=== PATIENT | male | born 1985 | race Two or more races ===

== ENCOUNTER 2024-02-18 11:18 | Emergency (ER) | payer MEDICAID, SELFPAY ==
[2024-02-18 11:22] VITALS: BP 171/105; BP 172/110; PULSE 110; RESP 20; TEMP 36.9; O2SAT 90; BMI 46.8
--- NOTE | 2024-02-18 11:31 | XR_ITS ---
Examination: CT abdomen and pelvis without contrast. Coronal 3-D reconstructions. Sagittal 2-D reconstructions. Date and time of exam:February 18, 2024 1343 hrs. Indications: Upper abdominal pain vomiting blood beginning 2 days ago CTDI: vol (mGy): 16.31 DLP: (mGycm): 25 Technique: Axial images of the abdomen have been obtained, 3 mm slice thickness Intravenous contrast material has not been administered. Low dose protocols were performed. One or more of the following dose reduction techniques were used; automated exposure control, adjustment of the mA and/or KV according to patient size, use of iterative reconstruction technique. Findings: Severe diffuse fatty infiltration throughout the liver, hepatomegaly 23 cm Liver mildly irregular in contour Mucosal thickening involving the stomach Spleen is not enlarged Gallstones No pancreatic or adrenal mass Mild bilateral renal parenchymal scar formation Aorta normal size No bowel obstruction No pericecal inflammatory change No diverticulitis Contracted urinary bladder No prostatomegaly Intact osseous structures Impression: Hepatomegaly, 23 cm, diffuse severe fatty infiltration throughout the liver Liver mildly irregular in contour, primary hepatocellular disease versus cirrhosis Gastritis pattern Cholelithiasis
--- NOTE | 2024-02-18 11:32 | XR_ITS ---
Examination: Abdomen sonogram, Limited Date and time of exam: February 18, 2024 1204 hrs. Indications: Abdominal pain nausea vomiting beginning 2 weeks ago Technique: Real-time sousa scale transabdominal sonographic images of the upper abdomen obtained. Findings: Normal gallbladder Common bile duct enlarged 0.8 cm no definite stones Pancreatic head 2.9 cm Significant hepatomegaly 24.9 cm fatty liver Normal hepatopedal portal venous flow Patent IVC Impression: Abnormally enlarged common bile duct 0.8 cm, consider MRCP follow-up to exclude common bile duct stones
[2024-02-18] MEDS: ONDANSETRON ODT 4 MG TABRAP PO (11:45)
[2024-02-18] MEDS: FAMOTIDINE 20 MG TABLET 40 MG PO (11:46)
[2024-02-18] MEDS: PANTOPRAZOLE 40 MG TABLET PO (11:46)
[2024-02-18 12:10] LABS: Basophils % (Auto) 1 % (0-2.5); Eosinophils # (Auto) 0.3 Thou/mm3 (0.0-0.5); Eosinophils % (Auto) 5 % (0-10); Hematocrit 44.6 % (41.0-53.0); Hemoglobin 15.7 g/dL (13.5-16.0); Immature Granulocytes % (Auto) 0 % (0-0); Immature Granulocytes Auto 0.01 Thou/mm3 (0.00-0.00); Lymphocytes % (Auto) 37 % (10-50); Mean Corpuscular HGB Conc 35.2 g/dl (31.0-37.0); Mean Corpuscular Hemoglobin 31.2 pg (25.0-35.0); Mean Corpuscular Volume 89 fL (80-100); Monocytes # (Auto) 0.3 Thou/mm3 (0.0-0.8); Monocytes % (Auto) 6 % (0-12); Neutrophils # (Auto) 2.8 Thou/mm3 (1.8-7.7); Neutrophils % (Auto) 51 % (37-80); Nucleated Red Blood Cell % 0 /100 WBC (0); Platelet Count 196 Thou/mm3 (140-440); RDW Standard Deviation 38.2 fL (35.1-43.9); Red Blood Count 5.04 Miln/mm3 (4.50-5.90); White Blood Count 5.4 Thou/mm3 (3.8-10.6)
[2024-02-18 12:37] LABS: Alanine Aminotransferase 65 U/L (10-49); Albumin, Serum 4.5 gm/dL (3.5-5.0); Albumin/Globulin Ratio 1.3 (1.2-2.2); Alkaline Phosphatase 135 U/L (46-116); Amylase 22 U/L (30-118); Anion Gap 6 (7-16); Aspartate Amino Transferase 41 U/L (0-34); BUN/Creatinine Ratio 10 Ratio (12-20); Bilirubin,Total 0.5 mg/dL (0.3-1.2); Blood Urea Nitrogen 11 mg/dL (9-23); Calcium 9.7 mg/dL (8.3-10.6); Calcium (Corrected) 9.7 mg/dL (8.5-10.1); Carbon Dioxide 30.1 mMol/L (20.0-31.0); Chloride 98 mMol/L (98-107); Creatinine (Component) 1.1 mg/dL (0.6-1.3); Estimated Creatinine Clearance 144.4 mL/min (>60); Globulin 3.4 gm/dL (2.3-3.5); Glucose 367 mg/dL (74-106); Lipase 31 U/L (12-53); Magnesium 2.1 mg/dL (1.6-2.6); Osmolality,Calculated 282 (275-295); Potassium 3.6 mMol/L (3.4-5.1); Sodium 134 mMol/L (136-145); Total Protein 7.9 gm/dL (5.7-8.2); eGFR > 60 See Note
[2024-02-18] MEDS: INSULIN HUM REGULAR 1 UNIT/0.01 ML (PER UNIT) 10 UNIT SC (12:58)
[2024-02-18 13:23] VITALS: BP 143/95; PULSE 91; RESP 20; O2SAT 96
[2024-02-18] MEDS: ACETAMINOPHEN w/COD 300-30 TABLET 2 TAB PO (14:05)
--- NOTE | 2024-02-18 15:24 | EDNOTE_ITS ---
ED Abdominal Pain RME/HPI General Chief Complaint: Abdominal Pain Stated complaint: ABD PAIN/WEAK/VOMITING/BLOOD IN STOOL X 2 WEEKS Time seen by provider: 02/18/24 11:23 Arrival date/time: 02/18/24 11:18 RME / HPI RME / HPI narrative: This section includes all my notes and documentations, including HPI, PE, and ED course. Parvez Scott MD HPI: 39-year-old male here to be evaluated with upper abdominal pain. He reports on and off pain for the past couple weeks. But severe in the past few hours. Reports nausea and vomiting. No hematemesis or coffee-ground emesis. No rectal bleeding or tarry stools. No fever or chills. Had appendectomy in the past. No urinary symptoms. No other complaints. ROS: All negative except as documented in HPI. Physical Exam: General: Alert and oriented. In severe pain. Eyes: Conjunctivae and lids clear. ENT: No nasal congestion. Neck: Supple. Heart: RRR. Lungs: No respiratory distress. Good air movement. No rhonchi, wheezing, rales. Abdomen: Soft with severe epigastric tenderness. Normal bowel sounds. No distension. No rebound or guarding. Back: No CVA tenderness. Skin: Warm and dry. Neuro: Alert and oriented X 3. I reviewed all diagnostic test results. My review of the GB ultrasound report is enlarged common bile duct 0.8 cm. My review of the abdominal CT report is gastritis pattern and cholelithiasis and hepatocellular disease versus cirrhosis. Blood tests remarkable for WBC 5.4 and glucose 267. At this point, diagnoses include: Gastritis and cholelithiasis and hyperglycemia. Treatment here included Zofran and famotidine and Protonix and two Tylenol #3. Metoprolol and clonidine ordered but not given due to spontaneous decreased BP. Significant improvement noted both subjectively and objectively. Prescribed famotidine and Protonix and recommended more outpatient workup. Based on my best medical judgment, made decision no further evaluation or treatment indicated at this time. Patient understands and agrees to the disc harge instructions customized and printed, see below. Discharge instructions from Dr. Scott: ?After extensive evaluation, your symptoms are due to stomach ulcer and gallstones, see attached handouts.? There is no emergency such as appendicitis needing emergent surgery. ?To help heal the ulcer, take Omeprazole 40 mg every morning and Famotidine 40 mg at bedtime for a month. --You need gallbladder to help digest fatty foods. So to prevent future attacks, avoid all fatty and oily and greasy and buttery and dairy foods.? This usually means take out and fast food restaurants. ?Zofran for nausea/vomiting.? Clear liquid diet for 24 hours.? Then slowly advance diet as tolerated. ?See a private doctor on 02/20/2024. Ask to review all test results and official radiology reports, to make sure you receive all necessary follow-ups and monitoring. Ask to help you get more care not available here in the ER.? Such as EGD or scoping the stomach, colonoscopy or scoping the colon, and a referral to see a agricultural commodities inspector. ?Seek immediate medical care with worsening or with any concerns. Parvez Scott MD Related Data Home Medications ?Medication ?Instructions ?Recorded ?Confirmed albuterol sulfate 90 mcg/actuation 2 puff inhalation QID PRN Dyspnea 12/02/19 12/02/19 aerosol inhaler carbamazepine 200 mg tablet 200 mg PO HS 12/02/19 12/03/19 lisinopril 40 mg tablet 40 mg PO QDAY 12/02/19 07/19/21 metoprolol succinate 25 mg 25 mg PO BID 12/02/19 07/19/21 tablet,extended release 24 hr paroxetine HCl 30 mg tablet 30 mg PO QDAY 12/02/19 12/02/19 Previous Rx's ?Medication ?Instructions ?Recorded dexamethasone 6 mg tablet 6 mg PO QDAY #5 tabs 12/08/19 (Decadron) guaifenesin 600 mg tablet, 600 mg PO BID PRN Cough #10 tabs 12/08/19 extended release 12 hr (Mucinex) acetaminophen 300 mg-codeine 30 mg 2 tab PO TID PRN pain #20 tabs 02/18/24 tablet famotidine 40 mg tablet 40 mg PO QDAY #30 tabs 02/18/24 omeprazole 40 mg capsule,delayed 40 mg PO QDAY #30 caps 02/18/24 release ondansetron 4 mg disintegrating 4 mg PO TID PRN nausea and 02/18/24 tablet vomiting 5 days #10 tabs Allergies Allergy/AdvReac Type Severity Reaction Status Date / Time No Known Allergies Allergy Verified 02/18/24 11:25 Course Quality Measures none Orders Category Date Time Status MRI Screening NOW Care 02/18/24 14:[address] abdomen pelvis wo con Stat Exams 02/18/24 11:31 Completed US gall bladder Stat Exams 02/18/24 11:32 Completed Amylase Stat Lab 02/18/24 11:47 Completed CBC Stat Lab 02/18/24 11:47 Completed CMP [Comprehensive Metabolic Panel] Stat Lab 02/18/24 11:47 Completed Lipase Stat Lab 02/18/24 11:47 Completed Magnesium Stat Lab 02/18/24 11:47 Completed ACETAMINOPHEN w/COD 300-30 [Tylenol w/Cod #3] Med 02/18/24 14:00 Discontinued 2 tab PO X1 ONE Famotidine [Pepcid] Med 02/18/24 11:30 Discontinued 40 mg PO X1 ONE Insulin Regular Med 02/18/24 12:41 Discontinued 10 unit SC X1 ONE Metoprolol Tartrate [Lopressor] Med 02/18/24 13:08 Discontinued 50 mg PO X1 ONE Ondansetron Odt [Zofran Odt] Med 02/18/24 11:30 Discontinued 4 mg PO X1 ONE Pantoprazole [Protonix] Med 02/18/24 11:30 Discontinued 40 mg PO X1 ONE cloNIDine HCL [Catapres] Med 02/18/24 13:08 Discontinued 0.2 mg PO X1 ONE Vital Signs Vital signs: Vital Signs Temperature 98.5 F 02/18/24 11:22 Pulse Rate 110 H 02/18/24 11:22 Respiratory Rate 20 02/18/24 11:22 Blood Pressure 171/105 H 02/18/24 11:22 Pulse Oximetry (%) 90 L 02/18/24 11:22 Oxygen Delivery Method Room Air 02/18/24 11:22 Abdominal Pain MDM Patient data External records reviewed:: [facility] previous records Clinical information provided by:: patient Social determinants that could affect healthcare access:: none Patient has the following chronic illnesses:: See chart How is presenting disease/condition affected by chronic disease/condition?: uneffected by Evaluation data The following diagnostics were reviewed and interpreted by me:: lab results and radiology exam(s) Lab and/or radiology exams considered but not ordered:: None Interpretation Summary: Gastritis and cholelithiasis Medications / Prescriptions Medications or Prescriptions considered but not ordered:: None Medication administrations:: Medication Administration History Discontinued Medications Acetaminophen/Codeine Phosphate (Acetaminophen W/Cod 300-30 Tablet) 2 tab PO X1 ONE Stop: 02/18/24 14:01 Last Admin: 02/18/24 14:05 Dose: 2 tab Documented By: Clonidine (Clonidine Hcl 0.1 Mg Tablet) 0.2 mg PO X1 ONE Stop: 02/18/24 13:09 Last Admin: 02/18/24 13:29 Dose: Not Given Documented By: TC Non-Admin Reason: Discontinued Famotidine (Famotidine 20 Mg Tablet) 40 mg PO X1 ONE Stop: 02/18/24 11:31 Last Admin: 02/18/24 11:46 Dose: 40 mg Documented By: PAOLA Insulin Human Regular (Insulin Hum Regular 1 Unit/0.01 Ml (Per Unit)) 10 unit SC X1 ONE Stop: 02/18/24 12:42 Last Admin: 02/18/24 12:58 Dose: 10 unit Documented By: PAOLA Co-signed By: ODALIS Metoprolol Tartrate (Metoprolol Tartrate 25 Mg Tablet) 50 mg PO X1 ONE Stop: 02/18/24 13:09 Last Admin: 02/18/24 13:29 Dose: Not Given Documented By: TC Non-Admin Reason: Discontinued Ondansetron HCl (Ondansetron Odt 4 Mg Tabrap) 4 mg PO X1 ONE; Protocol Stop: 02/18/24 11:31 Last Admin: 02/18/24 11:45 Dose: 4 mg Documented By: PAOLA Pantoprazole Sodium (Pantoprazole 40 Mg Tablet) 40 mg PO X1 ONE Stop: 02/18/24 11:31 Last Admin: 02/18/24 11:46 Dose: 40 mg Documented By: PAOLA Famotidine and Protonix Consultations Consultation(s) initiated? (list below): No Diagnosis Differential diagnosis abdominal pain: abdominal pain, calculus of kidney, constipation, diverticulitis, gastroenteritis, pancreatitis, small bowel obstru ction and other (Gastritis and biliary colic) Most likely diagnosis given after review of the tests above:: Gastritis and cholelithiasis Admission Indicated Admission indicated?: not indicated Explain why admission is indicated or not indicated:: Admission criteria not met Admission Request Was there a request for admission?: No Disposition Plan Disposition Plan: Discharge Discharge Attestation Discharge Attestation: The patient and all family members were given an opportunity to ask questions and understood the discharge instructions. Discharge instructions specifically effects, indications for sooner follow up or return to the emergency department, and the expected course of current diagnosis. Patient condition: Stable Discharge Plan Plan Patient Disposition: HOME (Self Care) Prescriptions/Referrals Prescriptions/Med Rec: New famotidine 40 mg tablet 40 mg PO QDAY Qty: 30 0RF acetaminophen-codeine 300-30 mg tablet 2 tab PO TID MDD 6 PRN (Reason: pain) Qty: 20 0RF omeprazole 40 mg capsule,delayed release(DR/EC) 40 mg PO QDAY Qty: 30 0RF ondansetron 4 mg tablet,disintegrating 4 mg PO TID PRN (Reason: nausea and vomiting) 5 Days Qty: 10 0RF No Action carbamazepine 200 mg Tablet 200 mg PO HS paroxetine HCl 30 mg Tablet 30 mg PO QDAY metoprolol succinate 25 mg Tablet Extended Release 24 Hr 25 mg PO BID albuterol sulfate 90 mcg/actuation Hfa Aerosol Inhaler 2 puff INHALATION QID PRN (Reason: Dyspnea) lisinopril 40 mg Tablet 40 mg PO QDAY dexamethasone [Decadron] 6 mg tablet 6 mg PO QDAY Qty: 5 0RF guaifenesin [Mucinex] 600 mg Tablet Extended Release 12hr 600 mg PO BID PRN (Reason: Cough) Qty: 10 0RF Referrals: Moe Cuellar MD [Primary Care Provider] - In 1 week Problem List Clinical Impression: Stomach ulcer, Gallstones Patient/Caregiver Discharge Instructions Discharge Activity: activity as tolerated Education Materials: ED Gallstones with Biliary Colic, ED PEPTIC ULCER vs GASTRITIS Additional Instructions: Discharge instructions from Dr. Scott: ?After extensive evaluation, your symptoms are due to stomach ulcer and gallstones, see attached handouts.? There is no emergency such as appendicitis needing emergent surgery. ?To help heal the ulcer, take Omeprazole 40 mg every morning and Famotidine 40 mg at bedtime for a month. --You need gallbladder to help digest fatty foods. So to prevent future attacks, avoid all fatty and oily and greasy and buttery a nd dairy foods.? This usually means take out and fast food restaurants. ?Zofran for nausea/vomiting.? Clear liquid diet for 24 hours.? Then slowly advance diet as tolerated. ?See a private doctor on 02/20/2024. Ask to review all test results and official radiology reports, to make sure you receive all necessary follow-ups and monitoring. Ask to help you get more care not available here in the ER.? Such as EGD or scoping the stomach, colonoscopy or scoping the colon, and a referral to see a agricultural commodities inspector. ?Seek immediate medical care with worsening or with any concerns. Instrucciones de ramya del Dr. Scott: ?Despu?s de luis evaluaci?n exhaustiva, tesha s?ntomas se deben a luis ?lcera de est?ashlie y c?lculos biliares, consulte los folletos adjuntos. No hay ninguna emergencia sally luis apendicitis que requiera luis cirug?a de emergencia. ?Para ayudar a curar la ?lcera, tome omeprazol 40 mg todas las ma?anas y famotidina 40 mg antes de acostarse doris un mes. --Necesita ves?cula biliar para ayudar a digerir los alimentos grasos. Por lo tanto, para prevenir futuros ataques, evite todos los alimentos grasosos y aceitosos y mantecosos y l?cteos. Leonardo generalmente significa comida para llevar y restaurantes de comida r?pida. ?Zofran para las n?useas/v?mitos. Dieta de l?quidos cartre doris 24 horas. Luego, avance lentamente con la dieta seg?n lo tolere. ?Consulte a un m?dico privado el 20/02/2024. Solicite revisar todos los resultados de las pruebas y los informes radiol?gicos oficiales, para asegurarse de recibir todos los seguimientos y monitoreo necesarios. Solicite ayuda para obtener m?s atenci?n que no est? disponible aqu? en la rut de emergencias. Anna luis endoscopia g?strica o endoscopia, luis colonoscopia o endoscopia de colon y luis derivaci?n para alena a un gastroenter?logo. ?Busque atenci?n m?dica inmediata si la enfermedad empeora o tiene alguna inquietud. Print Language: [place] Stand Alone Forms: Neena Award Info., Patient Portal Info Letter
[2024-02-18 16:12] VITALS: BP 159/95; PULSE 92; RESP 18; TEMP 37; O2SAT 95
== END 2024-02-18 16:46 | disposition home or self-care (01) ==
PROVIDERS: Emergency Provider Emergency Medicine; PCP Family Medicine
DX: K25.4 Chronic or unspecified gastric ulcer with hemorrhage (principal); K80.20 Calculus of gallbladder without cholecystitis without obstruction
CPT/HCPCS: 36415; 74176; 76705; 80053; 82150; 83690; 83735; 85025; 96372; 99284; J1815; Q0162; A9270

== ENCOUNTER 2024-08-12 20:57 | Emergency (ER) | payer MEDICAID, SELFPAY ==
[2024-08-12 21:01] VITALS: BMI 33.6
[2024-08-12 21:13] VITALS: BP 166/97; PULSE 106; RESP 20; TEMP 37.5; O2SAT 93
--- NOTE | 2024-08-12 21:16 | PD.EDFEVER ---
ED Fever RME/HPI General Stated Complaint: PAIN CHEST, NVD Time Seen by Provider: 08/12/24 21:17 Arrival date/time: 08/12/24 20:57 RME / HPI RME / HPI Narrative: This section includes all my notes and documentations, including HPI, PE, and ED course. Parvez Scott MD HPI: 39 y/o male with Hx of HTN and Type II DM presents with about a week history of worsening cough, productive cough, purulent sputum, and dyspnea. With fever and headache and vomiting. No other complaints. ROS: All negative except as documented in HPI. Physical Exam: General: Alert and oriented. Appearance of malaise noted. Hacking cough noted. Eyes: Conjunctivae and lids clear. ENT: No nasal congestion. Neck: Supple. Heart: RRR. Lungs: No respiratory distress. Mildly decreased air movement with rales. Abdomen: Soft and nontender. Normal bowel sounds. No distension. No rebound or guarding. Back: No CVA tenderness. Skin: Clammy. Neuro: Alert and oriented X 3. I reviewed all diagnostic test results: My interpretation of the chest x-ray is infiltrates. Blood tests and urine tests: unremarkable. Covid/Influenza: Negative. At this point, diagnoses include: Pneumonia. Treatment here included: Tylenol with Codeine, Zofran, Zithromax, Rocephin, Potassium Chloride, Prednisone. Significant improvement noted. Recommended outpatient care. Based on my best medical judgment, made decision no further evaluation or treatment indicated at this time. Patient understands and agrees to the discharge instructions customized and printed, see below. Discharge instructions from Dr. Scott: --No physical exertion for 3 days to help rest the lungs. ?No smoking or exposure to smoking or pets or dust or cold or humidity. --Zithromax and cefdinir to kill the germs causing the pneumonia. --Prednisone to help decrease the swelling in the airways. --Albuterol 2 puffs every 4-6 hours for 3 days to help keep the airways open. Then as needed for cough or shortness of breath. --Ibuprofen 800 mg every 6-8 hours today and tomorrow to decrease inflammation then as needed. --Tylenol with codeine for severe pain. --Zofran for nausea/vomiting. For good hydration, increase oral fluid and maintain clear urine. If dark or yellow, increase oral fluid. We need extra fluid when we are sick. --See a private doctor next week for recheck if not completely better. --Seek immediate medical care with worsening or with any concerns. Parvez Scott MD Related Data Home Medications ?Medication ?Instructions ?Recorded ?Confirmed albuterol sulfate 90 mcg/actuation 2 puff inhalation QID PRN Dyspnea 12/02/19 12/02/19 aerosol inhaler carbamazepine 200 mg tablet 200 mg PO HS 12/02/19 12/03/19 lisinopril 40 mg tablet 40 mg PO QDAY 12/02/19 07/19/21 metoprolol succinate 25 mg 25 mg PO BID 12/02/19 07/19/21 tablet,extended release 24 hr paroxetine HCl 30 mg tablet 30 mg PO QDAY 12/02/19 12/02/19 Previous Rx's ?Medication ?Instructions ?Recorded dexamethasone 6 mg tablet 6 mg PO QDAY #5 tabs 12/08/19 (Decadron) guaifenesin 600 mg tablet, 600 mg PO BID PRN Cough #10 tabs 12/08/19 extended release 12 hr (Mucinex) acetaminophen 300 mg-codeine 30 mg 2 tab PO TID PRN pain #20 tabs 02/18/24 tablet famotidine 40 mg tablet 40 mg PO QDAY #30 tabs 02/18/24 omeprazole 40 mg capsule,delayed 40 mg PO QDAY #30 caps 02/18/24 release acetaminophen 300 mg-codeine 30 mg 2 tab PO Q8H PRN pain #20 tabs 08/12/24 tablet albuterol sulfate 90 mcg/actuation 2 puff inhalation Q6H PRN 08/12/24 aerosol inhaler shortness of breath or wheezing #8.5 grams azithromycin 500 mg tablet 500 mg PO QDAY 3 days #3 tabs 08/12/24 (Zithromax TRI-WOODY) cefdinir 300 mg capsule 300 mg PO BID #14 caps 08/12/24 ondansetron 4 mg disintegrating 4 mg PO TID PRN nausea and 08/12/24 tablet vomiting 30 days #10 tabs prednisone 50 mg tablet 50 mg PO QDAY #3 tabs 08/12/24 Allergies Allergy/AdvReac Type Severity Reaction Status Date / Time No Known Allergies Allergy Verified 08/12/24 21:08 Review of Systems Review of Systems Systems Reviewed: All systems reviewed, normal except as documented Past Medical History Past Medical History CARDIAC: Positive Cardiac Disorders, Hypercholesterolemia and Hypertension RESPIRATORY: Positive Pneumonia (Admitted with COVID Pneu. at October.) GASTROINTESTINAL: Positive Obesity MUSCULOSKELETAL: Positive Musculoskeletal Disorders ENDOCRINE: Positive Diabetes Mellitus Type 2 PSYCHO/SOCIAL: Positive Depression OTHER HISTORY: Positive Hospitalization (Discharged from [facility] - Nov.) Social History SMOKING STATUS: Current some day smoker Physical Exam Narrative Physical exam: Refer to [facility] ED Exam Narrative Physical exam: Refer to HPI Course Course Course Narrative: CXR is ordered for determining the etiology of shortness of breath. Quality Measures none Orders Category Date Time Status Bedside COVID-19 Antigen Test NOW Care 08/12/24 21:17 Completed Bedside Influenza A&B Antigen Test NOW Care 08/12/24 21:17 Completed XR chest 2V Stat Exams 08/12/24 21:18 Completed Bilirubin,Direct Stat Lab 08/12/24 21:38 Completed Blood Culture (Lab) Stat Lab 08/12/24 21:38 Received CBC Stat Lab 08/12/24 21:38 Completed CMP [Comprehensive Metabolic Panel] Stat Lab 08/12/24 21:38 Completed CRP [C-Reactive Protein] Stat Lab 08/12/24 21:38 Completed ESR [Sed Rate (ESR)] Stat Lab 08/12/24 21:38 Completed Lactate (Lactic Acid) Stat Lab 08/12/24 21:38 Completed Magnesium Stat Lab 08/12/24 21:38 Completed Procalcitonin Stat Lab 08/12/24 21:38 Completed UA, C/S IF [Urinalysis, C/S if Indicated] Stat Lab 08/12/24 21:40 Completed ACETAMINOPHEN w/COD 300-30 [Tylenol w/Cod #3] Med 08/12/24 21:18 Discontinued 2 tab PO X1 ONE Azithromycin Po [Zithromax PO] Med 08/12/24 21:50 Discontinued 500 mg PO X1 ONE KCL 10% Liq UDC 15 ML Med 08/12/24 22:16 Discontinued 40 meq PO X1 ONE Ondansetron Odt [Zofran Odt] Med 08/12/24 21:18 Discontinued 4 mg PO X1 ONE cefTRIAXone [Rocephin] 1,000 mg Med 08/12/24 22:08 Discontinued Lidocaine 1% 20 ml [Xylocaine 1% 20 ML] 2.1 ml IM X1 predniSONE Med 08/12/24 21:50 Discontinued 60 mg PO X1 ONE Vital Signs Vital signs: Vital Signs Temperature 99.5 F 08/12/24 21:13 Pulse Rate 106 H 08/12/24 21:13 Respiratory Rate 20 08/12/24 21:13 Blood Pressure 166/97 H 08/12/24 21:13 Pulse Oximetry (%) 93 L 08/12/24 21:13 Oxygen Delivery Method Room Air 08/12/24 21:13 Fever MDM Narrative MDM Narrative:: Scribe Attestation: I, Francoise Vasquez, am scribing for and in the presence of Dr. Scott. Provider Notation: Although this document has been carefully reviewed, there may still be some phonetic and other typographical errors.? These errors are purely grammatical due to imperfections in the software program and should not be construed in any way to? compromise the substance of the patient's medical care during this visit. 39 y/o male with Hx of HTN and Type II DM presents with about a week history of worsening cough, productive cough, purulent sputum, and dyspnea. With fever and headache and vomiting. No other complaints. Patient data External records reviewed:: [facility] previous records (Reviewed prior ED records from 02/18/24. Patient was seen for Gallstone.) Clinical information provided by:: patient Social determinants that could affect healthcare access:: none Patient has the following chronic illnesses:: Hypercholesterolemia, Hypertension, Obesity, Diabetes Mellitus Type 2, Depression How is presenting disease/condition affected by chronic disease/condition?: exacerbated by Evaluation data The following diagnostics were reviewed and interpreted by me:: lab results and radiology exam(s) Lab and/or radiology exams considered but not ordered:: None Interpretation Summary: I reviewed all diagnostic test results: My interpretation of the chest x-ray is infiltrates. Blood tests and urine tests: unremarkable. Covid/Influenza: Negative. Medications / Prescriptions Medications or Prescriptions considered but not ordered:: None Medication administrations:: Medication Administration History Discontinued Medications Acetaminophen/Codeine Phosphate (Acetaminophen W/Cod 300-30 Tablet) 2 tab PO X1 ONE Stop: 08/12/24 21:19 Last Admin: 08/12/24 21:40 Dose: 2 tab Documented By: CCT Azithromycin (Azithromycin 250 Mg Tablet) 500 mg PO X1 ONE Stop: 08/12/24 21:51 Last Admin: 08/12/24 22:37 Dose: 500 mg Documented By: CCT Ceftriaxone Sodium 1,000 mg/ (Lidocaine HCl 2.1 ml) 0 mg IM X1 ONE Stop: 08/12/24 22:09 Last Admin: 08/12/24 22:38 Dose: 1,000 mg Documented By: CCT Ondansetron HCl (Ondansetron Odt 4 Mg Tabrap) 4 mg PO X1 ONE; Protocol Stop: 08/12/24 21:19 Last Admin: 08/12/24 21:40 Dose: 4 mg Documented By: CCT Potassium Chloride (Potassium Chloride 10% 20 Meq/15 Ml Udc) 40 meq PO X1 ONE Stop: 08/12/24 22:17 Last Admin: 08/12/24 22:37 Dose: 40 meq Documented By: CCT Prednisone (Prednisone 20 Mg Tablet) 60 mg PO X1 ONE Stop: 08/12/24 21:51 Last Admin: 08/12/24 22:37 Dose: 60 mg Documented By: CCT Tylenol with Codeine, Zofran, Zithromax, Rocephin, Potassium Chloride, Prednisone. Consultations Consultation(s) initiated? (list below): No Diagnosis Fever Differential Diagnosis: cellulitis, fever of unknown origin, gastroenteritis, community acquired pneumonia, pyelonephritis, viral infection, sepsis, influenza and other (UTI, Appendicitis) Most likely diagnosis given after review of the tests above:: Pneumonia Admission Indicated Admission indicated?: not indicated Explain why admission is indicated or not indicated:: With significant improvement, there was no indication for admission. Admission Request Was there a request for admission?: No Disposition Plan Disposition Plan: Discharge Discharge Attestation Discharge Attestation: The patient and all family members were given an opportunity to ask questions and understood the discharge instructions. Discharge instructions specifically effects, indications for sooner follow up or return to the emergency department, and the expected course of current diagnosis. Patient condition: Stable Discharge Plan Plan Patient Disposition: HOME (Self Care) Prescriptions/Referrals Prescriptions/Med Rec: New acetaminophen-codeine 300-30 mg tablet 2 tab PO Q8H MDD 6 PRN (Reason: pain) Qty: 20 0RF prednisone 50 mg tablet 50 mg PO QDAY Qty: 3 0RF albuterol sulfate 90 mcg/actuation HFA aerosol inhaler 2 puff inhalation Q6H PRN (Reason: shortness of breath or wheezing) Qty: 8.5 0RF ondansetron 4 mg tablet,disintegrating 4 mg PO TID PRN (Reason: nausea and vomiting) 30 Days Qty: 10 0RF cefdinir 300 mg capsule 300 mg PO BID Qty: 14 0RF azithromycin [Zithromax TRI-WOODY] 500 mg tablet 500 mg PO QDAY 3 Days Qty: 3 0RF No Action carbamazepine 200 mg Tablet 200 mg PO HS paroxetine HCl 30 mg Tablet 30 mg PO QDAY metoprolol succinate 25 mg Tablet Extended Release 24 Hr 25 mg PO BID albuterol sulfate 90 mcg/actuation Hfa Aerosol Inhaler 2 puff INHALATION QID PRN (Reason: Dyspnea) lisinopril 40 mg Tablet 40 mg PO QDAY dexamethasone [Decadron] 6 mg tablet 6 mg PO QDAY Qty: 5 0RF guaifenesin [Mucinex] 600 mg Tablet Extended Release 12hr 600 mg PO BID PRN (Reason: Cough) Qty: 10 0RF famotidine 40 mg tablet 40 mg PO QDAY Qty: 30 0RF acetaminophen-codeine 300-30 mg tablet 2 tab PO TID MDD 6 PRN (Reason: pain) Qty: 20 0RF omeprazole 40 mg capsule,delayed release(DR/EC) 40 mg PO QDAY Qty: 30 0RF Referrals: No Primary/Family,Physician [Primary Care Provider] - In 1 week Problem List Clinical Impression: Pneumonia Patient/Caregiver Discharge Instructions Discharge Activity: activity as tolerated Education Materials: ED Pneumonia (Adult) Additional Instructions: Discharge instructions from Dr. Scott: --No physical exertion for 3 days to help rest the lungs. ?No smoking or exposure to smoking or pets or dust or cold or humidity. --Zithromax and cefdinir to kill the germs causing the pneumonia. --Prednisone to help decrease the swelling in the airways. --Albuterol 2 puffs every 4-6 hours for 3 days to help keep the airways open. Then as needed for cough or shortness of breath. --Ibuprofen 800 mg every 6-8 hours today and tomorrow to decrease inflammation then as needed. --Tylenol with codeine for severe pain. --Zofran for nausea/vomiting. For good hydration, increase oral fluid and maintain clear urine. If dark or yellow, increase oral fluid. We need extra fluid when we are sick. --See a private doctor next week for recheck if not completely better. --Seek immediate medical care with worsening or with any concerns. Instrucciones de ramya del Dr. Scott: -- No realice esfuerzo f?sico doris 3 d?as para ayudar a los pulmones a descansar. -- No fume ni se exponga al humo, a mascotas, al polvo, al fr?o ni a la humedad. -- Zitromax y cefdinir para eliminar los g?rmenes que causan la neumon?a. -- Prednisona para ayudar a disminuir la inflamaci?n de las v?as respiratorias. -- Albuterol: 2 inhalaciones cada 4-6 horas doris 3 d?as para ayudar a mantener las v?as respiratorias abiertas. Luego, seg?n sea necesario para la tos o la dificultad para respirar. -- Ibuprofeno 800 mg cada 6-8 horas hoy y ma?vick para disminuir la inflamaci?n, luego, seg?n sea necesario. -- Tylenol con code?na para el dolor intenso. -- Zofran para las n?useas y los v?mitos. Para luis buena hidrataci?n, aumente la ingesta de l?quidos y mantenga la orina jorge. Si la orina es oscura o amarilla, aumente la ingesta de l?quidos. Necesitamos m?s l?quidos cuando estamos enfermos. -- Consulte con un m?dico privado la pr?xima semana para luis revisi?n si no mejora por completo. --Busque atenci?n m?dica inmediata si empeora o tiene alguna inquietud. Print Language: Ukrainian Stand Alone Forms: Neena Award Info., Patient Portal Info Letter
--- NOTE | 2024-08-12 21:18 | XR_ITS ---
Examination: PA lateral chest 2 views TECHNIQUE: Upright PA lateral chest 2 views Date and time: August 12, 2024 2130 hours INDICATIONS: Fever chills beginning yesterday FINDINGS: Mild opacity in the right middle lobe on the lateral view Normal heart size The osseous structures are intact IMPRESSION: Early pneumonia right middle lobe
[2024-08-12] MEDS: ACETAMINOPHEN w/COD 300-30 TABLET 2 TAB PO (21:40)
[2024-08-12] MEDS: ONDANSETRON ODT 4 MG TABRAP PO (21:40)
[2024-08-12 21:46] LABS: Lactate (Lactic Acid) 1.8 mMol/L (0.4-2.0)
[2024-08-12 21:52] LABS: Basophils % (Auto) 0 % (0-2.5); Eosinophils # (Auto) 0.2 Thou/mm3 (0.0-0.5); Eosinophils % (Auto) 2 % (0-10); Hemoglobin 16.5 g/dL (13.5-16.0); Immature Granulocytes % (Auto) 0 % (0-0); Immature Granulocytes Auto 0.04 Thou/mm3 (0.00-0.00); Lymphocytes # (Auto) 0.8 Thou/mm3 (1.0-4.8); Lymphocytes % (Auto) 9 % (10-50); Mean Corpuscular HGB Conc 36.7 g/dl (31.0-37.0); Mean Corpuscular Hemoglobin 31.7 pg (25.0-35.0); Mean Corpuscular Volume 87 fL (80-100); Monocytes # (Auto) 0.5 Thou/mm3 (0.0-0.8); Monocytes % (Auto) 5 % (0-12); Neutrophils # (Auto) 7.8 Thou/mm3 (1.8-7.7); Neutrophils % (Auto) 84 % (37-80); Nucleated Red Blood Cell % 0 /100 WBC (0); Platelet Count 347 Thou/mm3 (140-440); RDW Standard Deviation 39.2 fL (35.1-43.9); White Blood Count 9.3 Thou/mm3 (3.8-10.6)
[2024-08-12 22:01] LABS: Collection Type, Urine Clean Catch
[2024-08-12 22:01] LABS: Sed Rate (ESR) 37 mm/hr (0-15)
[2024-08-12 22:13] LABS: Alanine Aminotransferase 33 U/L (10-49); Albumin, Serum 4.2 gm/dL (3.5-5.0); Albumin/Globulin Ratio 1.3 (1.2-2.2); Alkaline Phosphatase 105 U/L (46-116); Anion Gap 11 (7-16); BUN/Creatinine Ratio 14 Ratio (12-20); Bilirubin,Direct 0.2 mg/dL (0.0-0.3); Bilirubin,Total 0.5 mg/dL (0.3-1.2); Blood Urea Nitrogen 14 mg/dL (9-23); C-Reactive Protein 3.3 mg/dL (0.0-0.9); Calcium 8.8 mg/dL (8.3-10.6); Calcium (Corrected) 8.8 mg/dL (8.5-10.1); Carbon Dioxide 26.5 mMol/L (20.0-31.0); Chloride 101 mMol/L (98-107); Estimated Creatinine Clearance 133.2 mL/min (>60); Globulin 3.3 gm/dL (2.3-3.5); Glucose 147 mg/dL (74-106); Magnesium 1.7 mg/dL (1.6-2.6); Osmolality,Calculated 279 (275-295); Potassium 3.2 mMol/L (3.4-5.1); Procalcitonin 0.15 ng/ml (0.0-0.49); Sodium 138 mMol/L (136-145); Total Protein 7.5 gm/dL (5.7-8.2); eGFR > 60 See Note
[2024-08-12 22:25] LABS: Bacteria,Urine Rare; Bilirubin,Urine 1+ (Negative); Blood,Urine Negative (Negative); Clarity,Urine Turbid (Clear/Hazy); Color,Urine Yellow (Lt Yel-Yel); Culture Indicated,Urine Not Indicated; Glucose, Urine 3+ (Negative); Hyaline Casts,Urine 1 /hpf (0-1); Ketones,Urine Trace (Negative); Leukocyte Esterase,Urine Positive (Negative); Nitrite,Urine Negative (Negative); Protein,Urine 2+ (Neg - Trace); RBC,Urine 8 /hpf (0-3); Specific Gravity,Urine 1.039 (1.001-1.035); Squamous Epithelial Cell,Urine < 1 /hpf (0-5); WBC,Urine 7 /hpf (0-5)
[2024-08-12] MEDS: AZITHROMYCIN 250 MG TABLET 500 MG PO (22:37)
[2024-08-12] MEDS: POTASSIUM CHLORIDE 10% 20 MEQ/15 ML UDC 40 MEQ PO (22:37)
[2024-08-12] MEDS: predniSONE 20 MG TABLET 60 MG PO (22:37)
[2024-08-12] MEDS: cefTRIAXone 1,000 MG, LIDOCAINE 1% 20 ML 2.1 ML IM (22:38)
[2024-08-12 22:50] VITALS: BP 142/90; PULSE 100; RESP 20; TEMP 37.2; O2SAT 94
== END 2024-08-12 22:50 | disposition home or self-care (01) ==
PROVIDERS: Emergency Provider Emergency Medicine
DX: J18.9 Pneumonia, unspecified organism (principal); F17.200 Nicotine dependence, unspecified, uncomplicated
CPT/HCPCS: 36415; 71046; 80053; 81001; 82248; 83605; 83735; 84145; 85025; 85652; 86140; 87040; 87400; 87811; 96372; 99283; J0696; J3490; J7512; Q0162; A9270

== ENCOUNTER 2024-08-15 08:34 | Emergency (ER) | payer MEDICAID, SELFPAY ==
[2024-08-15 08:36] VITALS: BMI 44.3
[2024-08-15 09:08] VITALS: BP 157/107; PULSE 76; RESP 17; TEMP 36.4; O2SAT 98
--- NOTE | 2024-08-15 09:11 | PD.EDNV ---
Nausea/Vomit./Diarrhea-RME/HPI General Chief complaint: Nausea/Vomiting/Diarrhea Stated complaint: CONSTANT N/V/D, WEAKNESS SINCE TUESDAY Time Seen by Provider: 08/15/24 08:54 Source: patient Arrival date/time: 08/15/24 08:34 39-year-old male with no known medical history presents to the emergency room with a chief complaint of weakness, nausea, vomiting, diarrhea x 3 days Mode of arrival: ambulatory Limitations: no limitations Related Data Home Medications ?Medication ?Instructions ?Recorded ?Confirmed albuterol sulfate 90 mcg/actuation 2 puff inhalation QID PRN Dyspnea 12/02/19 12/02/19 aerosol inhaler carbamazepine 200 mg tablet 200 mg PO HS 12/02/19 12/03/19 lisinopril 40 mg tablet 40 mg PO QDAY 12/02/19 07/19/21 metoprolol succinate 25 mg 25 mg PO BID 12/02/19 07/19/21 tablet,extended release 24 hr paroxetine HCl 30 mg tablet 30 mg PO QDAY 12/02/19 12/02/19 Previous Rx's ?Medication ?Instructions ?Recorded dexamethasone 6 mg tablet 6 mg PO QDAY #5 tabs 12/08/19 (Decadron) guaifenesin 600 mg tablet, 600 mg PO BID PRN Cough #10 tabs 12/08/19 extended release 12 hr (Mucinex) acetaminophen 300 mg-codeine 30 mg 2 tab PO TID PRN pain #20 tabs 02/18/24 tablet famotidine 40 mg tablet 40 mg PO QDAY #30 tabs 02/18/24 omeprazole 40 mg capsule,delayed 40 mg PO QDAY #30 caps 02/18/24 release acetaminophen 300 mg-codeine 30 mg 2 tab PO Q8H PRN pain #20 tabs 08/12/24 tablet albuterol sulfate 90 mcg/actuation 2 puff inhalation Q6H PRN 08/12/24 aerosol inhaler shortness of breath or wheezing #8.5 grams cefdinir 300 mg capsule 300 mg PO BID #14 caps 08/12/24 ondansetron 4 mg disintegrating 4 mg PO TID PRN nausea and 08/12/24 tablet vomiting 30 days #10 tabs prednisone 50 mg tablet 50 mg PO QDAY #3 tabs 08/12/24 loperamide 2 mg capsule 2 mg PO Q6H PRN loose stool #14 08/15/24 (Anti-Diarrheal (loperamide)) caps ondansetron 4 mg disintegrating 4 mg PO Q8H PRN nausea and 08/15/24 tablet vomiting #14 tabs Allergies Allergy/AdvReac Type Severity Reaction Status Date / Time No Known Allergies Allergy Verified 08/15/24 08:39 Review of Systems Review of Systems Systems Reviewed: All systems reviewed, normal except as documented Constitutional Constitutional: Reports system reviewed and no additional complaints, except as documented, Denies fatigue, Denies fever(s), Denies headache(s) and Denies weakness Eyes Eyes: Reports system reviewed and no additional complaints, except as documented, Denies blurry vision and Denies change in vision ENT Ears, Nose, Mouth, and Throat: Reports system reviewed and no additional complaints, except as documented, Denies otalgia, Denies headache(s), Denies nasal congestion, Denies throat swelling and Denies vertigo Cardiovascular Cardiovascular: Reports system reviewed and no additional complaints, except as documented, Denies chest pain, Denies dyspnea and Denies dyspnea on exertion Respiratory Respiratory: Reports system reviewed and no additional complaints, except as documented, Denies chest congestion, Denies cough, Denies dyspnea, Denies dyspnea on exertion and Denies wheezing Gastrointestinal Gastrointestinal: Reports system reviewed and no additional complaints, except as documented, Reports abdominal pain, Reports cramping, Reports loose stools, Reports nausea and Reports vomiting Genitourinary Genitourinary: Reports system reviewed and no additional complaints, except as documented, Denies dysuria and Denies hematuria Musculoskeletal Musculoskeletal: Reports system reviewed and no additional complaints, except as documented and Denies back pain Integumentary/Breasts Skin/Breast: Reports system reviewed and no additional complaints, except as documented and Denies wounds Neurologic Neurologic: Reports system reviewed and no additional complaints, except as documented, Denies confusion, Denies headache(s), Denies lack of coordination, Denies vertigo and Denies weakness Psychiatric Psychiatric: Reports system reviewed and no additional complaints, except as documented, Denies anxiety, Denies confusion, Denies depression, Denies paranoia, Denies suicidal ideation and Denies tactile hallucinations Endocrine Endocrine: Reports system reviewed and no additional complaints, except as documented and Denies fatigue Hematologic/Lymphatic Hematologic/Lymphatic: Reports system reviewed and no additional complaints, except as documented and Denies lymphadenopathy Allergic/Immunologic Allergic/Immunologic: Reports system reviewed and no additional complaints, except as documented, Denies throat swelling, Denies urticaria and Denies wheezing Past Medical History Past Medical History NEUROLOGIC: Negative Neurological Disorders CARDIAC: Positive Cardiac Disorders, Hypercholesterolemia and Hypertension; Negative Congestive Heart Failure RESPIRATORY: Positive Pneumonia (Admitted with COVID Pneu. at October.); Negative Chronic Obstructive Pulmonary Disease (COPD) GASTROINTESTINAL: Positive Obesity; Negative Gastrointestinal Disorders GENITOURINARY: Negative Genitourinary Disorders or Renal Disease MUSCULOSKELETAL: Positive Musculoskeletal Disorders ENDOCRINE: Positive Diabetes Mellitus Type 2; Negative Endocrine Disorders or Diabetes Mellitus Type 1 HEMATOLOGIC: Negative Blood Disorders PSYCHO/SOCIAL: Positive Depression OTHER HISTORY: Positive Hospitalization (Discharged from [facility] - Nov.) Social History SMOKING STATUS: Former smoker ED Exam General Limitations: Present no limitations General appearance: Present alert and in no apparent distress Head Head exam: Present atraumatic Eye Eye exam: Present normal appearance, PERRL and EOMI ENT ENT exam: Present normal exam, normal oropharynx and mucous membranes moist Neck Neck exam: Present normal inspection, full ROM and trachea midline Chest Chest inspection: Present normal inspection and symmetric chest wall rise Respiratory Respiratory exam: Present normal lung sounds bilaterally; Absent respiratory distress, wheezes, stridor, accessory muscle use or prolonged expiratory phase Cardiovascular Cardiovascular exam: Present regular rate, normal rhythm and normal heart sounds; Absent tachycardia Abdominal Exam Abdominal exam: Present soft, tenderness, normal bowel sounds and tenderness at McBurney's Point; Absent Moreira's sign Abdominal tenderness: Present RLQ, epigastrium and moderate Extremities Exam Extremities exam: Present normal inspection and full ROM Back Exam Back exam: Present normal inspection and full ROM Neurological Exam Neurological exam: Present alert, oriented X3 and CN II-XII intact Psychiatric Psychiatric exam: Present normal affect and normal mood Skin Skin exam: Present warm, dry, intact and normal color Course Quality Measures none Orders Category Date Time Status CT abdomen pelvis wo con Stat Exams 08/15/24 09:12 Completed CBC Stat Lab 08/15/24 10:28 Completed CMP [Comprehensive Metabolic Panel] Stat Lab 08/15/24 10:28 Completed Lipase Stat Lab 08/15/24 10:28 Completed UA [Urinalysis] Stat Lab 08/15/24 09:45 Completed Urine Culture Stat Lab 08/15/24 09:45 Received Potassium Chloride [K-Dur] Med 08/15/24 11:25 Discontinued 40 meq PO X1 ONE Vital Signs Vital signs: Vital Signs Temperature 97.6 F 08/15/24 09:08 Pulse Rate 76 08/15/24 09:08 Respiratory Rate 17 08/15/24 09:08 Blood Pressure 157/107 H 08/15/24 09:08 Pulse Oximetry (%) 98 08/15/24 09:08 Oxygen Delivery Method Room Air 08/15/24 09:08 O2 saturation 98% within normal limits Nausea/Vomiting/Diarrhea MDM Narrative MDM Narrative:: 39-year-old male with no known medical history presents to the emergency room with a chief complaint of weakness, nausea, vomiting, diarrhea x 3 days Patient is hemodynamically stable and in no apparent distress Physical examination shows tenderness and pain with palpation to the right lower quadrant left lower quadrant and epigastric area A CT of the abdomen and pelvis was completed and was negative for any acute findings CBC CMP urinalysis were negative for any acute findings Patient was discharged and educated to follow-up with primary care provider in the next 24 to 48 hours and return to the emergency room for any evidence of worsening signs or symptoms Patient data External records reviewed:: [facility] previous records Clinical information provided by:: patient Social determinants that could affect healthcare access:: none Patient has the following chronic illnesses:: No chronic illness How is presenting disease/condition affected by chronic disease/condition?: no chronic disease Evaluation data The following diagnostics were reviewed and interpreted by me:: lab results and radiology exam(s) Lab and/or radiology exams considered but not ordered:: Labs and radiology exams considered in order Interpretation Summary: CT of the abdomen and pelvis-Findings: Liver is mildly irregular in contour, no focal liver or splenic lesions Contracted gallbladder No pancreatic mass No renal or ureteral calculi Aorta normal size No bowel obstruction No pericecal inflammatory change No diverticulitis No bladder mass or bladder calculi Negative for prostatomegaly The osseous structures are intact IMPRESSION: Suspicious for primary hepatocellular disease Contracted gallbladder No renal or ureteral calculi Mild to moderate bilateral renal parenchymal scar formation No CT findings of appendicitis bowel obstruction or diverticulitis Medications / Prescriptions Medications / Prescriptions considered but not ordered:: Medication given Medication administrations:: Medication Administration History Discontinued Medications Potassium Chloride (Potassium Chloride 20 Meq Tabcr) 40 meq PO X1 ONE Stop: 08/15/24 11:26 Last Admin: 08/15/24 11:35 Dose: 40 meq Documented By: MF Medication given Consultations Consultation(s) initiated? (list below): No Diagnosis Nausea Differential Diagnosis: traveler's diarrhea, gastroenteritis, dehydration and other (Appendicitis/cholecystitis/Shreya lithiasis) Most likely diagnosis given after review of the tests above:: Gastroenteritis Admission Indicated Admission indicated?: not indicated Admission Request Was there a request for admission?: No Disposition Plan Disposition Plan: Discharge Discharge Attestation Discharge Attestation: The patient and all family members were given an opportunity to ask questions and understood the discharge instructions. Discharge instructions specifically effects, indications for sooner follow up or return to the emergency department, and the expected course of current diagnosis. Patient condition: Stable Discharge Plan Plan Patient Disposition: HOME (Self Care) Discharge Disposition comment: Stable Prescriptions/Referrals Prescriptions/Med Rec: New loperamide [Anti-Diarrheal (loperamide)] 2 mg capsule 2 mg PO Q6H PRN (Reason: loose stool) Qty: 14 0RF ondansetron 4 mg tablet,disintegrating 4 mg PO Q8H PRN (Reason: nausea and vomiting) Qty: 14 0RF No Action carbamazepine 200 mg Tablet 200 mg PO HS paroxetine HCl 30 mg Tablet 30 mg PO QDAY metoprolol succinate 25 mg Tablet Extended Release 24 Hr 25 mg PO BID albuterol sulfate 90 mcg/actuation Hfa Aerosol Inhaler 2 puff INHALATION QID PRN (Reason: Dyspnea) lisinopril 40 mg Tablet 40 mg PO QDAY dexamethasone [Decadron] 6 mg tablet 6 mg PO QDAY Qty: 5 0RF guaifenesin [Mucinex] 600 mg Tablet Extended Release 12hr 600 mg PO BID PRN (Reason: Cough) Qty: 10 0RF famotidine 40 mg tablet 40 mg PO QDAY Qty: 30 0RF acetaminophen-codeine 300-30 mg tablet 2 tab PO TID MDD 6 PRN (Reason: pain) Qty: 20 0RF omeprazole 40 mg capsule,delayed release(DR/EC) 40 mg PO QDAY Qty: 30 0RF acetaminophen-codeine 300-30 mg tablet 2 tab PO Q8H MDD 6 PRN (Reason: pain) Qty: 20 0RF prednisone 50 mg tablet 50 mg PO QDAY Qty: 3 0RF albuterol sulfate 90 mcg/actuation HFA aerosol inhaler 2 puff inhalation Q6H PRN (Reason: shortness of breath or wheezing) Qty: 8.5 0RF ondansetron 4 mg tablet,disintegrating 4 mg PO TID PRN (Reason: nausea and vomiting) 30 Days Qty: 10 0RF cefdinir 300 mg capsule 300 mg PO BID Qty: 14 0RF Referrals: Moe Cuellar MD [Primary Care Provider] - In 1 week Problem List Clinical Impression: Gastroenteritis Patient/Caregiver Discharge Instructions Education Materials: ED Gastroenteritis, Noninfectious Additional Instructions: Please follow-up with your primary care provider in the next [address] of your abdomen and pelvis was completed and was negative for any acute findings Medication was sent to your pharmacy to help you with your symptoms For any evidence of worsening signs or symptoms return the emergency room immediately Print Language: Occitan Stand Alone Forms: Neena Award Info., Patient Portal Info Letter PA/FREIGHT CALLER Supervising Physician PA/FREIGHT CALLER Supervising Physician: Dr. Hung
--- NOTE | 2024-08-15 09:12 | XR_ITS ---
Examination: CT abdomen and pelvis without contrast. Coronal 3-D reconstructions. Sagittal 2-D reconstructions. Date and time of exam:August 15, 2024 0927 hours Comparison February 18, 2024 INDICATIONS: Generalized abdominal pain beginning today CTDI: vol (mGy): 21.5 DLP: (mGycm): 1530 Technique: Axial images of the abdomen have been obtained, 3 mm slice thickness Intravenous contrast material has not been administered. Low dose protocols were performed. One or more of the following dose reduction techniques were used; automated exposure control, adjustment of the mA and/or KV according to patient size, use of iterative reconstruction technique. Findings: Liver is mildly irregular in contour, no focal liver or splenic lesions Contracted gallbladder No pancreatic mass No renal or ureteral calculi Aorta normal size No bowel obstruction No pericecal inflammatory change No diverticulitis No bladder mass or bladder calculi Negative for prostatomegaly The osseous structures are intact IMPRESSION: Suspicious for primary hepatocellular disease Contracted gallbladder No renal or ureteral calculi Mild to moderate bilateral renal parenchymal scar formation No CT findings of appendicitis bowel obstruction or diverticulitis
[2024-08-15 09:56] LABS: Collection Type, Urine Clean Catch
[2024-08-15 10:09] LABS: Bacteria,Urine Rare; Bilirubin,Urine Negative (Negative); Blood,Urine Negative (Negative); Clarity,Urine Clear (Clear/Hazy); Color,Urine Yellow (Lt Yel-Yel); Glucose, Urine Negative (Negative); Ketones,Urine Negative (Negative); Leukocyte Esterase,Urine Negative (Negative); Nitrite,Urine Negative (Negative); PH,Urine 6.5 (5.0-7.0); Protein,Urine 1+ (Neg - Trace); RBC,Urine 2 /hpf (0-3); Specific Gravity,Urine 1.028 (1.001-1.035); Squamous Epithelial Cell,Urine < 1 /hpf (0-5); Urobilinogen,Urine Negative mg/dL (0.0-1.0); WBC,Urine 8 /hpf (0-5)
--- NOTE | 2024-08-15 10:10 | PC.NURSE ---
PT WAS CALLED FOR LAB WHEN HE WAS IN X-RAY. CALLED LAB TO LET THEM KNOW HE IS BACK IN THE LOBBY; SPOKE W/ ISABEL.
[2024-08-15 10:52] LABS: Basophils % (Auto) 0 % (0-2.5); Eosinophils # (Auto) 0.1 Thou/mm3 (0.0-0.5); Eosinophils % (Auto) 1 % (0-10); Hematocrit 51.4 % (41.0-53.0); Hemoglobin 17.5 g/dL (13.5-16.0); Immature Granulocytes % (Auto) 0 % (0-0); Immature Granulocytes Auto 0.01 Thou/mm3 (0.00-0.00); Lymphocytes # (Auto) 1.9 Thou/mm3 (1.0-4.8); Lymphocytes % (Auto) 29 % (10-50); Mean Corpuscular Hemoglobin 31.3 pg (25.0-35.0); Mean Corpuscular Volume 92 fL (80-100); Monocytes # (Auto) 0.7 Thou/mm3 (0.0-0.8); Monocytes % (Auto) 11 % (0-12); Neutrophils # (Auto) 3.9 Thou/mm3 (1.8-7.7); Neutrophils % (Auto) 59 % (37-80); Nucleated Red Blood Cell % 0 /100 WBC (0); Platelet Count 240 Thou/mm3 (140-440); RDW Standard Deviation 42.6 fL (35.1-43.9); Red Blood Count 5.59 Miln/mm3 (4.50-5.90); White Blood Count 6.6 Thou/mm3 (3.8-10.6)
[2024-08-15 11:09] LABS: Alanine Aminotransferase 55 U/L (10-49); Albumin, Serum 4.4 gm/dL (3.5-5.0); Albumin/Globulin Ratio 1.3 (1.2-2.2); Alkaline Phosphatase 91 U/L (46-116); Anion Gap 11 (7-16); BUN/Creatinine Ratio 13 Ratio (12-20); Bilirubin,Total 0.4 mg/dL (0.3-1.2); Blood Urea Nitrogen 14 mg/dL (9-23); Calcium 8.5 mg/dL (8.3-10.6); Calcium (Corrected) 8.5 mg/dL (8.5-10.1); Carbon Dioxide 24.5 mMol/L (20.0-31.0); Chloride 107 mMol/L (98-107); Creatinine (Component) 1.1 mg/dL (0.6-1.3); Estimated Creatinine Clearance 139.9 mL/min (>60); Globulin 3.3 gm/dL (2.3-3.5); Glucose 136 mg/dL (74-106); Lipase 29 U/L (12-53); Osmolality,Calculated 285 (275-295); Sodium 142 mMol/L (136-145); Total Protein 7.7 gm/dL (5.7-8.2); eGFR > 60 See Note
[2024-08-15] MEDS: POTASSIUM CHLORIDE 20 mEq TABCR 40 MEQ PO (11:35)
[2024-08-15 11:36] VITALS: PULSE 80; RESP 18; TEMP 36.7; O2SAT 98
== END 2024-08-15 11:38 | disposition home or self-care (01) ==
PROVIDERS: Nurse Practitioner Family; Emergency Provider Emergency Medicine; PCP Family Medicine
DX: K52.9 Noninfective gastroenteritis and colitis, unspecified (principal)
CPT/HCPCS: 36415; 74176; 80053; 81001; 83690; 85025; 87086; 99284; A9270

== ENCOUNTER → 2024-10-10 | Outpatient (CLI) | payer OTHER, SELFPAY ==
--- NOTE | 2024-10-10 12:25 | XR_ITS ---
Examination: Forearm, left, 2 views. Technique: Forearm, AP, lateral 2 views Date and time of exam: October 10, 2024 1322 hours INDICATIONS: Injury to the forearm today, forearm pain. FINDINGS: Old appearing bone density off the medial humeral condylar region 25 mm Suspicious for nondisplaced fracture involving the distal radial metaphysis IMPRESSION: Recommend standard 3 view wrist series follow-up to exclude nondisplaced fracture distal radial metaphysis
== END | disposition home or self-care (01) ==
LOC: CDIM 12:17
PROVIDERS: PCP Student in an Organized Health Care Education/Training Program; Referring Provider Family Medicine; Visit Provider Family Medicine
DX: S52.92XA Unspecified fracture of left forearm, initial encounter for closed fracture (principal); X58.XXXA Exposure to other specified factors, initial encounter
CPT/HCPCS: 73090

== ENCOUNTER 2025-01-06 13:59 | Emergency (ER) | payer MEDICAID, SELFPAY ==
[2025-01-06 14:06] VITALS: BP 163/107; BP 182/118; PULSE 111; RESP 20; TEMP 36.7; O2SAT 96
--- NOTE | 2025-01-06 14:14 | XR_ITS ---
Examination: CT abdomen with intravenous contrast CT pelvis with intravenous contrast 2-D coronal reconstructions 2-D sagittal reconstructions Date and time of exam: January 06, 2025, 1628 hours INDICATIONS: Umbilical pain and swelling this week. CTDI: vol (mGy) 28 DLP: (mGycm) 1790 Technique: Multiple axial sections of the abdomen and pelvis have been obtained. 64 slice high-resolution scanner used. 3 mm axial sections have been obtained, post intravenous injection 60 cc [id number] 2-D sagittal, coronal reconstructions obtained. Low dose protocols were performed. One or more of the following dose reduction techniques were used; automated exposure control, adjustment of the mA and/or KV according to patient size, use of iterative reconstruction technique. Findings: No visualized liver or splenic lesion, fatty infiltration throughout the liver Contracted gallbladder No pancreatic or adrenal mass Aorta normal size No pericecal inflammatory change No bowel obstruction or diverticulitis Cellulitis involving the lower anterior abdominal pelvic wall Possible very early abscess axial image 254, 14 x 30 mm in the subcutaneous tissue No prostatomegaly Urinary bladder intact IMPRESSION: Cellulitis pattern in the lower anterior abdominal wall on the right side Suspicious for early soft tissue abscess at this site Suggest ultrasound soft tissue lower abdomen wall follow-up
--- NOTE | 2025-01-06 14:15 | EDRME_ITS ---
Rapid Medical Screening Exam [facility] Arrival date/time: 01/06/25 13:59 39-year-old male with a history of hypertension presents to the emergency room with a chief complaint of 8 out of 10 lower abdominal pain x 3 days. Patient states he has an abscess under his umbilicus I have greeted and performed a focused initial assessment of this patient. A comprehensive ED assessment and evaluation of the patient, analysis of all test results, and completion of the medical decision making process will be conducted by additional ED providers. Chief Complaint: Skin/Abscess/Foreign Body Time Seen by Provider: 01/06/25 14:01 Vital signs: Vital Signs Temperature 98.1 F 01/06/25 14:06 Pulse Rate 111 H 01/06/25 14:06 Respiratory Rate 20 01/06/25 14:06 Blood Pressure 182/118 H 01/06/25 14:06 Pulse Oximetry (%) 96 01/06/25 14:06 Oxygen Delivery Method Room Air 01/06/25 14:06 Vital signs reviewed by provider: Yes Exam: Tenderness under the umbilical area it is erythemic, rough, very tender to the touch Clear bilateral lung sounds Clinical Impression: Abdominal abscess/cellulitis/abdominal pain
[2025-01-06] MEDS: HYDROcodone/APAP 5/325 TABLET 1 TAB PO (14:24)
[2025-01-06 14:52] LABS: Basophils # (Auto) 0.0 Thou/mm3 (0.0-0.2); Basophils % (Auto) 0 % (0-2.5); Eosinophils # (Auto) 0.2 Thou/mm3 (0.0-0.5); Eosinophils % (Auto) 2 % (0-10); Hematocrit 46.1 % (41.0-53.0); Hemoglobin 16.0 g/dL (13.5-16.0); Immature Granulocytes Auto 0.04 Thou/mm3 (0.00-0.00); Lymphocytes # (Auto) 2.0 Thou/mm3 (1.0-4.8); Lymphocytes % (Auto) 14 % (10-50); Mean Corpuscular HGB Conc 34.7 g/dl (31.0-37.0); Mean Corpuscular Hemoglobin 31.0 pg (25.0-35.0); Mean Corpuscular Volume 89 fL (80-100); Monocytes # (Auto) 0.8 Thou/mm3 (0.0-0.8); Monocytes % (Auto) 6 % (0-12); Neutrophils # (Auto) 10.9 Thou/mm3 (1.8-7.7); Neutrophils % (Auto) 78 % (37-80); Nucleated Red Blood Cell # 0.00 Thou/mm3 (0.00-0.00); Nucleated Red Blood Cell % 0 /100 WBC (0); Platelet Count 259 Thou/mm3 (140-440); RDW Standard Deviation 39.1 fL (35.1-43.9); Red Blood Count 5.16 Miln/mm3 (4.50-5.90); White Blood Count 14.0 Thou/mm3 (3.8-10.6)
[2025-01-06 15:09] LABS: Collection Type, Urine Clean Catch
[2025-01-06 15:14] LABS: Bilirubin,Urine Negative (Negative); Blood,Urine Negative (Negative); Clarity,Urine Clear (Clear/Hazy); Color,Urine Yellow (Lt Yel-Yel); Glucose, Urine Negative (Negative); Hyaline Casts,Urine < 1 /hpf (0-1); Ketones,Urine Negative (Negative); Leukocyte Esterase,Urine Negative (Negative); Nitrite,Urine Negative (Negative); PH,Urine 6.0 (5.0-7.0); Protein,Urine Trace (Neg - Trace); RBC,Urine 3 /hpf (0-3); Specific Gravity,Urine 1.029 (1.001-1.035); Squamous Epithelial Cell,Urine < 1 /hpf (0-5); Urobilinogen,Urine Negative mg/dL (0.0-1.0); WBC,Urine 1 /hpf (0-5)
[2025-01-06 15:15] LABS: Alanine Aminotransferase 27 U/L (10-49); Albumin, Serum 4.6 gm/dL (3.5-5.0); Albumin/Globulin Ratio 1.4 (1.2-2.2); Alkaline Phosphatase 123 U/L (46-116); Anion Gap 10 (7-16); Aspartate Amino Transferase 20 U/L (0-34); BUN/Creatinine Ratio 12 Ratio (12-20); Bilirubin,Total 0.4 mg/dL (0.3-1.2); Blood Urea Nitrogen 13 mg/dL (9-23); Calcium 9.7 mg/dL (8.3-10.6); Calcium (Corrected) 9.7 mg/dL (8.5-10.1); Carbon Dioxide 27.9 mMol/L (20.0-31.0); Chloride 103 mMol/L (98-107); Creatinine (Component) 1.1 mg/dL (0.6-1.3); Globulin 3.3 gm/dL (2.3-3.5); Glucose 127 mg/dL (74-106); Lipase 24 U/L (12-53); Osmolality,Calculated 283 (275-295); Potassium 3.4 mMol/L (3.4-5.1); Sodium 141 mMol/L (136-145); Total Protein 7.9 gm/dL (5.7-8.2); eGFR > 60 See Note
[2025-01-06 15:36] VITALS: BMI 38.5
[2025-01-06 16:30] VITALS: BP 169/98; PULSE 101; RESP 20; O2SAT 95
[2025-01-06] MEDS: ONDANSETRON INJ 2 MG/ML INJ 2 ML 4 MG IVP (16:47)
[2025-01-06] MEDS: MORPHINE SULF INJ 4 MG/ML VIAL IVP (16:48)
--- NOTE | 2025-01-06 17:10 | PRELIM_ITS ---
CT scan of the abdomen and pelvis with intravenous contrast (axial sections with sagittal and coronal reformats). January 06, 2025 at 1628 hours Clinical History: Rule out abscess in the lower umbilical area. Comparison: No prior study is available for comparison Findings: There is bibasilar streaky atelectasis. There is fatty infiltration of the liver. A calcific density is noted in the liver, likely representing an old calcified granuloma. The gallbladder is contracted. The pancreas, spleen, kidneys, and adrenals are unremarkable. No evidence of bowel obstruction. The appendix is not visualized. There is no mesenteric or retroperitoneal adenopathy. The urinary bladder is unremarkable. The prostate appears normal. There is no free fluid or free air. Mild osseous degenerative changes are noted. There is a transitional vertebra at the lumbosacral junction with sacralization of L5. A small fat-containing umbilical hernia is present. Subcutaneous fat induration and a hypodense area measuring 91 x 28 x 15 mm are seen in the right lower abdominal wall with surrounding fat stranding, likely an area of cellulitis with minimal central abscess formation. Impression: Findings suggestive of cellulitis involving the right lower abdominal wall with minimal central abscess formation. Report Electronically Signed By: Vanessa Cline 01/06/2025 5:09:57 PM [EST]
--- NOTE | 2025-01-06 17:15 | EDNOTE_ITS ---
<Statement entered by Melina Hopkins MD - 01/07/25 06:12> As co-signing physician, I was present and available for consult prn. I concur with the plan and care as documented by the midlevel provider. ED General RME/HPI General Chief complaint: Skin/Abscess/Foreign Body Stated complaint: ABSCESS TO ABDOMINAL AREA Time Seen by Provider: 01/06/25 14:01 Arrival date/time: 01/06/25 13:59 CC: Low center abdominal pain HPI ongoing for the past 4 days. The patient states that the site he has had multiple infections in the past secondary to his large belly hanging over the belt. The patient states he has removed belts but continues to rub against his pants. Patient denies fever no OTC medicines taken. The patient is awake alert oriented nontoxic-appearing not in any acute distress. Localized pain is 4 on a 10 scale. RME / HPI RME / HPI narrative: 01/06/25 13:59 39-year-old male with a history of hypertension presents to the emergency room with a chief complaint of 8 out of 10 lower abdominal pain x 3 days. Patient states he has an abscess under his umbilicus I have greeted and performed a focused initial assessment of this patient. A comprehensive ED assessment and evaluation of the patient, analysis of all test results, and completion of the medical decision making process will be conducted by additional ED providers. Exam: Tenderness under the umbilical area it is erythemic, rough, very tender to the touch Clear bilateral lung sounds Impression: Abdominal abscess/cellulitis/abdominal pain Related Data Home Medications ?Medication ?Instructions ?Recorded ?Confirmed albuterol sulfate 90 mcg/actuation 2 puff inhalation Q ID PRN Dyspnea 12/02/19 12/02/19 aerosol inhaler carbamazepine 200 mg tablet 200 mg PO HS 12/02/1911/06 lisinopril 40 mg tablet 40 mg PO QDAY 12/02/1907/19 metoprolol succinate 25 mg 25 mg PO BID 12/02/1907/19 tablet,extended release 24 hr paroxetine HCl 30 mg tablet 30 mg PO QDAY 12/02/19 Previous Rx's ?Medication ?Instructions ?Recorded dexamethasone 6 mg tablet 6 mg PO QDAY #5 tabs 0 (Decadron) guaifenesin 600 mg tablet, 600 mg PO BID PRN Cough #10 tabs 12/08/19 extended release 12 hr (Mucinex) acetaminophen 300 mg-codeine 30 mg 2 tab PO TID PRN pa in #20 tabs 02/18/24 tablet famotidine 40 mg tablet 40 mg PO QDAY #30 tabs 02/17 omeprazole 40 mg capsule,delayed 40 mg PO QDAY #30 cap s 02/18/24 release acetaminophen 300 mg-codeine 30 mg 2 tab PO Q8H PRN pa in #20 tabs 08/12/24 tablet albuterol sulfate 90 mcg/actuation 2 puff inhalation Q 6H PRN 08/12/24 aerosol inhaler shortness of breath or wheez ing #8.5 grams cefdinir 300 mg capsule 300 mg PO BID #14 caps 08/12 prednisone 50 mg tablet 50 mg PO QDAY #3 tabs loperamide 2 mg capsule 2 mg PO Q6H PRN loose stool #14 08/15/24 (Anti-Diarrheal (loperamide)) caps ondansetron 4 mg disintegrating 4 mg PO Q8H PRN nausea and 08/15/24 tablet vomiting #14 tabs amoxicillin 875 mg-potassium 1 tab PO BID #14 tabs 05/01 clavulanate 125 mg tablet Allergies Allergy/AdvReac Type Severity Reaction Status Date / Time No Known Allergies Allergy Verified 01/06/25 14:03 Review of Systems Review of Systems Narrative Review of Systems: GEN: No fever, no chills, no weight loss EYES: No discharge, no visual changes, no pain HEENT: No ear pain, no congestion, no sore throat PULM: No shortness of breath, no cough, no congestion CV: No chest pain, no dyspnea on exertion, no palpitations GI: No nausea, no vomiting, no diarrhea, + pain, no constipation : No frequency, no urgency, no dysuria MUSC/SKEL: No joint pain, no back pain SKIN: No rash PSYCH: No hallucinations, no depression HEME/LYMPH: No easy bleeding or bruising tendencies NEURO: No weakness, no headache Past Medical History Past Medical History NEUROLOGIC: Positive Epilepsy; Negative Neurological Disorders CARDIAC: Positive Hypercholesterolemia and Hypertension; Negative Cardiac Disorders or Congestive Heart Failure RESPIRATORY: Positive Pneumonia (Admitted with COVID Pneu. at October.); Negative Chronic Obstructive Pulmonary Disease (COPD) or Asthma GASTROINTESTINAL: Positive Obesity; Negative Gastrointestinal Disorders GENITOURINARY: Negative Genitourinary Disorders or Renal Disease MUSCULOSKELETAL: Positive Musculoskeletal Disorders ENDOCRINE: Positive Diabetes Mellitus Type 2; Negative Endocrine Disorders or Diabetes Mellitus Type 1 HEMATOLOGIC: Negative Blood Disorders or Sickle Cell Disease PSYCHO/SOCIAL: Positive Depression and Anxiety OTHER HISTORY: Positive Hospitalization Social History SMOKING STATUS: Smoker, status unknown ED Exam Narrative Physical exam: [General: Morbidly obese not in cot no acute distress Head normocephalic HEENT: Within acceptable limits Neck is supple nontender Chest equal chest rise nontender to palpation Respiratory: Clear to auscultation no wheezes crackles or rubs CV: Rate rhythm is regular no murmurs rubs or clicks Abdomen is grossly distended secondary to body habitus large pannus, at the base of which underneath center, there is an area of firmness no surrounding erythema not warm to touch but firm to touch. The balance of the pannus and upper abdomen are nontender no masses positive bowel sounds all 4 quadrants Back: No CVA tenderness no spinous process tenderness from cervical spine thoracic and lumbar spine Skin: Intact no petechiae rash induration ulceration or crepitus Extremities: Moving all extremity against resistance cap refill less than 2 seconds neurosensory intact. Neuro: Awake alert oriented x3 Glascow coma 15 no focal deficits] Course Course Course Narrative: Will discharge the patient home with cellulitis he is to follow-up in 3 to 5 days. Quality Measures none Orders Category Date Time Status CT Screening NOW Care 01/06/25 14:[address] abdomen pelvis w con Stat Exams 01/06/25 14:14 Taken CBC Stat Lab 01/06/25 14:29 Completed CMP [Comprehensive Metabolic Panel] Stat Lab 01/06/25 14:29 Completed Lipase Stat Lab 01/06/25 14:29 Completed UA [Urinalysis] Stat Lab 01/06/25 15:02 Completed Urine Culture Stat Lab 01/06/25 15:02 Received HYDROcodone*/APAP 5/325 [[place] 5/325] Med 01/06/25 14:14 Discontinued 1 tab PO X1 ONE Morphine* Inj Med 01/06/25 15:20 Discontinued 4 mg IVP X1 ONE Ondansetron Inj [Zofran Inj] Med 01/06/25 15:20 Discontinued 4 mg IVP X1 ONE cefTRIAXone/D5w 1gm IV premix [Rocephin/D5w 1gm IV Med 01/06/25 17:19 Active premix] 1 gm in 50 ml IV X1 Vital Signs Vital signs: Vital Signs Temperature 98.1 F 01/06/25 14:06 Pulse Rate 111 H 01/06/25 14:06 Respiratory Rate 20 01/06/25 14:06 Blood Pressure 182/118 H 01/06/25 14:06 Pulse Oximetry (%) 96 01/06/25 14:06 Oxygen Delivery Method Room Air 01/06/25 14:06 Discharge Plan Plan Patient Disposition: HOME (Self Care) Patient condition on transfer: Stable Prescriptions/Referrals Prescriptions/Med Rec: New amoxicillin-pot clavulanate 875-125 mg tablet 1 tab PO BID Qty: 14 0RF No Action carbamazepine 200 mg Tablet 200 mg PO HS paroxetine HCl 30 mg Tablet 30 mg PO QDAY metoprolol succinate 25 mg Tablet Extended Release 24 Hr 25 mg PO BID albuterol sulfate 90 mcg/actuation Hfa Aerosol Inhaler 2 puff INHALATION QID PRN (Reason: Dyspnea) lisinopril 40 mg Tablet 40 mg PO QDAY dexamethasone [Decadron] 6 mg tablet 6 mg PO QDAY Qty: 5 0RF guaifenesin [Mucinex] 600 mg Tablet Extended Release 12hr 600 mg PO BID PRN (Reason: Cough) Qty: 10 0RF famotidine 40 mg tablet 40 mg PO QDAY Qty: 30 0RF acetaminophen-codeine 300-30 mg tablet 2 tab PO TID MDD 6 PRN (Reason: pain) Qty: 20 0RF omeprazole 40 mg capsule,delayed release(DR/EC) 40 mg PO QDAY Qty: 30 0RF acetaminophen-codeine 300-30 mg tablet 2 tab PO Q8H MDD 6 PRN (Reason: pain) Qty: 20 0RF prednisone 50 mg tablet 50 mg PO QDAY Qty: 3 0RF albuterol sulfate 90 mcg/actuation HFA aerosol inhaler 2 puff inhalation Q6H PRN (Reason: shortness of breath or wheezing) Qty: 8.5 0RF cefdinir 300 mg capsule 300 mg PO BID Qty: 14 0RF loperamide [Anti-Diarrheal (loperamide)] 2 mg capsule 2 mg PO Q6H PRN (Reason: loose stool) Qty: 14 0RF ondansetron 4 mg tablet,disintegrating 4 mg PO Q8H PRN (Reason: nausea and vomiting) Qty: 14 0RF Referrals: No Primary/Family,Physician [Primary Care Provider] - In 1 week Problem List Clinical Impression: Cellulitis, abdominal wall Patient/Caregiver Discharge Instructions Other Activity Instructions:: There is no large abscess in the abdominal wall, continue take the antibiotics wet compresses return in 3 to 5 days if there is a worsening of symptoms. Otherwise follow-up with your primary care doctor. Education Materials: ED Cellulitis Print Language: Telugu Stand Alone Forms: [employer] Award Info., Patient Portal Info Letter, Work/School Release JULI/PATSY Supervising Physician EMA Supervising Physician: Ananda Lee ENP [facility] Clinical Information Provided by: patient Medical Records reviewed [facility] Meds/Rx considered, not ordered None Labs/Rad/Tests considered, not ordered None Chronic Illness/Social Conditions Explain: Morbid obesity EKG EKG not done Labs Labs: interpreted by me Lab(s) Interpretation(s): CBC shows leukocytosis of 14.0 no anemia thrombocytopenia CMP shows glucose of 127 no other electrolyte imbalances renal impairment transaminitis or T. bili elevation Urine is negative for urinary tract infection. Imaging Imaging interpretation: interpreted by me Imaging Interpretation(s): CT shows some cellulitis and minimal abscess. Medication Administration(s) none Medication Administration History Ceftriaxone Sodium/Dextrose (Rocephin/D5w 1gm Iv Premix) 1 gm in 50 mls @ 100 m ls/hr IV X1 ONE Stop: 01/06/25 17:48 Discontinued Medications Hydrocodone Bitart/Acetaminophen (Hydrocodone/Apap 5/325 Tablet) 1 tab PO X1 ONE Stop: 01/06/25 14:15 Last Admin: 01/06/25 14:24 Dose: 1 tab Documented By: Morphine Sulfate (Morphine Sulf Inj 4 Mg/Ml Vial) 4 mg IVP X1 ONE Stop: 01/06/25 15:21 Last Admin: 01/06/25 16:48 Dose: 4 mg Documented By: KOFFI Ondansetron HCl (Ondansetron Inj 2 Mg/Ml Inj 2 Ml) 4 mg IVP X1 ONE; Protocol Stop: 01/06/25 15:21 Last Admin: 01/06/25 16:47 Dose: 4 mg Documented By: KOFFI
[2025-01-06] MEDS: cefTRIAXone/D5w 1gm IV premix 1 GM/50 ML BAG IV (17:57)
== END 2025-01-06 18:15 | disposition home or self-care (01) ==
PROVIDERS: Nurse Practitioner Family; Emergency Provider Emergency Medicine
DX: L02.211 Cutaneous abscess of abdominal wall (principal); L03.311 Cellulitis of abdominal wall; I10 Essential (primary) hypertension; E66.01 Morbid (severe) obesity due to excess calories
CPT/HCPCS: 36415; 74177; 80053; 81001; 83690; 85025; 87086; 96374; 96375; 99284; A4649; J0696; J2270; J2405; Q9967; A9270